=== PATIENT | male | born 1940 | race Asian ===

== ENCOUNTER 2020-04-24 22:53 | Inpatient (IN) | payer BC ==
[2020-04-24 23:53] LABS: BASO % 0.5 % (0-2.0); HEMATOCRIT 48.7 % (35.4-49); HEMOGLOBIN 16.7 GM/dL (11.7-16.9); LYMPH % 9.4 % (8-40); MCH 32.7 pg (25.7-33.7); MCHC 34.2 g/dl (32.0-35.9); MEAN CELL VOLUME 95.7 fl (80-96); MEAN PLT VOLUME 8.2 fl (7.5-11.1); MONO % 4.9 % (3.8-10.2); NEUT % 85.2 % (42.8-82.8); PLATELET COUNT 133 K/MM3 (134-434); RBC 5.09 M/mm3 (4.00-5.60); RDW 12.9 % (11.9-15.9); WHITE BLOOD COUNT 4.9 K/mm3 (4.0-10.0)
[2020-04-25 00:22] LABS: CHLORIDE 97 mmol/L (98-107); POTASSIUM 3.7 mmol/L (3.5-5.1); SODIUM 132 mmol/L (136-145)
[2020-04-25 00:24] LABS: INR 1.07 (0.83-1.09); PROTHROMBIN TIME (PATIENT) 13.1 SEC (9.7-13.0)
[2020-04-25 00:25] LABS: CALCIUM 8.6 mg/dL (8.5-10.1)
[2020-04-25 00:26] LABS: ALBUMIN 3.6 g/dl (3.4-5.0); ANION GAP 11 MMOL/L (8-16); BLOOD UREA NITROGEN 17.4 mg/dL (7-18); CO2 24 mmol/L (21-32); GLUCOSE,RANDOM 111 mg/dL (74-106)
[2020-04-25 00:28] LABS: SGOT/AST 101 U/L (15-37); SGPT/ALT 84 U/L (13-61)
[2020-04-25 00:29] LABS: CREATININE 0.7 mg/dL (0.55-1.3); LDH 593 U/L (87-246)
[2020-04-25] MEDS ORDERED: DEXAMETHASONE SOD PHOSPHATE 4 MG/1 ML VIAL IVPUSH ONE (00:29)
[2020-04-25 00:30] LABS: TOT PROT 7.3 g/dl (6.4-8.2)
[2020-04-25 00:31] LABS: ALK PHOS 60 U/L (45-117)
[2020-04-25 00:34] LABS: N-TERMINAL BNP 29.8 pg/ml (5-450)
[2020-04-25] MEDS ORDERED: DEXAMETHASONE SOD PHOSPHATE 10 MG/1 ML VIAL ONE (00:35)
[2020-04-25] MEDS ORDERED: SODIUM CHLORIDE 1,000 ML IV SCH (02:00)
[2020-04-25 06:30] LABS: BASO % 0.1 % (0-2.0); HEMATOCRIT 44.4 % (35.4-49); HEMOGLOBIN 15.5 GM/dL (11.7-16.9); LYMPH % 11.4 % (8-40); MCH 32.9 pg (25.7-33.7); MEAN CELL VOLUME 94.1 fl (80-96); MEAN PLT VOLUME 8.2 fl (7.5-11.1); MONO % 3.4 % (3.8-10.2); NEUT % 85.1 % (42.8-82.8); PLATELET COUNT 131 K/MM3 (134-434); RBC 4.71 M/mm3 (4.00-5.60); RDW 12.9 % (11.9-15.9); WHITE BLOOD COUNT 4.7 K/mm3 (4.0-10.0)
[2020-04-25 06:43] LABS: POTASSIUM 4.2 mmol/L (3.5-5.1)
[2020-04-25 06:45] LABS: CALCIUM 8.2 mg/dL (8.5-10.1)
[2020-04-25 06:46] LABS: ALBUMIN 3.1 g/dl (3.4-5.0); ALBUMIN 3.2 g/dl (3.4-5.0); BLOOD UREA NITROGEN 15.1 mg/dL (7-18); MAGNESIUM 2.3 mg/dL (1.8-2.4)
[2020-04-25 06:48] LABS: CREATININE 0.6 mg/dL (0.55-1.3)
[2020-04-25 06:49] LABS: BILIRUBIN,DIRECT 0.4 mg/dL (0.0-0.2); PHOSPHOROUS 3.4 mg/dL (2.5-4.9)
[2020-04-25 06:50] LABS: BILIRUBIN,TOTAL 0.9 mg/dL (0.2-1); TOT PROT 6.6 g/dl (6.4-8.2)
[2020-04-25 06:51] LABS: BILIRUBIN,TOTAL 0.8 mg/dL (0.2-1); TOT PROT 6.8 g/dl (6.4-8.2)
[2020-04-25] MEDS ORDERED: ZINC SULFATE 220 MG CAPSULE (FP) ONE (07:58)
[2020-04-25] MEDS ORDERED: FAMOTIDINE 10 MG TABLET ONE (07:58)
[2020-04-25] MEDS ORDERED: ASCORBIC ACID 500 MG TABLET (FP) ONE (07:58)
[2020-04-25] MEDS ORDERED: CHOLECALCIFEROL (VIT D3) 1,000 UNIT (25 MCG) TABLET ONE (07:59)
[2020-04-25] MEDS ORDERED: ENOXAPARIN NA (PORCINE) 40 MG/0.4 ML DISP.SYRIN SQ ONE (08:00)
[2020-04-25] MEDS: FAMOTIDINE 10 MG TABLET PO SCH (11:00)
[2020-04-25] MEDS: ENOXAPARIN NA (PORCINE) 40 MG/0.4 ML DISP.SYRIN SQ SCH (11:00)
[2020-04-25] MEDS: ZINC SULFATE 220 MG CAPSULE (FP) PO SCH (11:04)
[2020-04-25] MEDS: CHOLECALCIFEROL (VIT D3) 1,000 UNIT (25 MCG) TABLET PO SCH (11:05)
[2020-04-25] MEDS: ASCORBIC ACID 250 MG TABLET (FP) PO SCH (12:04)
[2020-04-25] MEDS ORDERED: REMDESIVIR 200 MG in SODIUM CHLORIDE 210 ML IVPB ONE (14:30)
[2020-04-25] MEDS ORDERED: ATORVASTATIN CA 40 MG TABLET (FP) PO SCH (22:00)
[2020-04-26 07:09] LABS: BASO % 0.1 % (0-2.0); HEMATOCRIT 42.3 % (35.4-49); LYMPH % 13.8 % (8-40); MCH 33.3 pg (25.7-33.7); MCHC 35.3 g/dl (32.0-35.9); MEAN CELL VOLUME 94.3 fl (80-96); MEAN PLT VOLUME 8.5 fl (7.5-11.1); MONO % 6.6 % (3.8-10.2); NEUT % 79.5 % (42.8-82.8); PLATELET COUNT 132 K/MM3 (134-434); RBC 4.49 M/mm3 (4.00-5.60); WHITE BLOOD COUNT 4.9 K/mm3 (4.0-10.0)
[2020-04-26 07:32] LABS: CHLORIDE 104 mmol/L (98-107); POTASSIUM 3.6 mmol/L (3.5-5.1); SODIUM 136 mmol/L (136-145)
[2020-04-26 07:35] LABS: ALBUMIN 2.8 g/dl (3.4-5.0)
[2020-04-26 07:36] LABS: ANION GAP 7 MMOL/L (8-16); BLOOD UREA NITROGEN 16.9 mg/dL (7-18); CO2 26 mmol/L (21-32); GLUCOSE,RANDOM 127 mg/dL (74-106); MAGNESIUM 2.3 mg/dL (1.8-2.4)
[2020-04-26 07:38] LABS: SGPT/ALT 81 U/L (13-61)
[2020-04-26 07:39] LABS: CREATININE 0.6 mg/dL (0.55-1.3); PHOSPHOROUS 2.6 mg/dL (2.5-4.9); SGOT/AST 102 U/L (15-37)
[2020-04-26 07:40] LABS: BILIRUBIN,TOTAL 0.7 mg/dL (0.2-1); TOT PROT 6.3 g/dl (6.4-8.2)
[2020-04-26 07:41] LABS: ALK PHOS 61 U/L (45-117)
[2020-04-26 07:45] LABS: LDH 611 U/L (87-246)
[2020-04-26 08:02] LABS: ERYTHROCYTE SEDIMENTATION RATE 65 mm/hr (0-20)
[2020-04-26] MEDS: ENOXAPARIN NA (PORCINE) 40 MG/0.4 ML DISP.SYRIN SQ SCH (09:32)
[2020-04-26] MEDS: DEXAMETHASONE SOD PHOSPHATE 10 MG/1 ML VIAL IVPUSH SCH (09:33)
[2020-04-26] MEDS: ZINC SULFATE 220 MG CAPSULE (FP) PO SCH (09:33)
[2020-04-26] MEDS: CHOLECALCIFEROL (VIT D3) 1,000 UNIT (25 MCG) TABLET PO SCH (09:33)
[2020-04-26] MEDS: FAMOTIDINE 10 MG TABLET PO SCH (09:33)
[2020-04-26] MEDS ORDERED: PT OWN MED DRAWER 7, Y5N ONE (09:36)
[2020-04-26] MEDS: ASCORBIC ACID 250 MG TABLET (FP) PO SCH (09:37)
[2020-04-26] MEDS ORDERED: amLODIPine BESYLATE 10 MG TABLET (FP) PO SCH (10:00)
[2020-04-26] MEDS: REMDESIVIR 100 MG in SODIUM CHLORIDE 230 ML IVPB SCH (14:14)
[2020-04-26] MEDS: ATORVASTATIN CA 10 MG TABLET (FP) PO SCH (22:01)
[2020-04-26] MEDS: FAMOTIDINE 20 MG TABLET PO SCH (22:01)
[2020-04-27 07:44] LABS: HEMATOCRIT 44.2 % (35.4-49); HEMOGLOBIN 15.7 GM/dL (11.7-16.9); LYMPH % 11.1 % (8-40); MCH 33.4 pg (25.7-33.7); MCHC 35.6 g/dl (32.0-35.9); MEAN CELL VOLUME 93.9 fl (80-96); MEAN PLT VOLUME 8.4 fl (7.5-11.1); MONO % 6.6 % (3.8-10.2); NEUT % 82.3 % (42.8-82.8); PLATELET COUNT 171 K/MM3 (134-434); RBC 4.71 M/mm3 (4.00-5.60); RDW 12.8 % (11.9-15.9); WHITE BLOOD COUNT 5.5 K/mm3 (4.0-10.0)
[2020-04-27 08:10] LABS: POTASSIUM 3.9 mmol/L (3.5-5.1)
[2020-04-27 08:12] LABS: CALCIUM 8.1 mg/dL (8.5-10.1)
[2020-04-27 08:13] LABS: ALBUMIN 2.9 g/dl (3.4-5.0); BLOOD UREA NITROGEN 19.4 mg/dL (7-18); MAGNESIUM 2.5 mg/dL (1.8-2.4)
[2020-04-27 08:16] LABS: CREATININE 0.6 mg/dL (0.55-1.3); PHOSPHOROUS 2.9 mg/dL (2.5-4.9)
[2020-04-27 08:17] LABS: BILIRUBIN,TOTAL 0.7 mg/dL (0.2-1); TOT PROT 6.2 g/dl (6.4-8.2)
[2020-04-27] MEDS: TAMSULOSIN HCL 0.4 MG CAP PO SCH (08:47)
[2020-04-27] MEDS: amLODIPine BESYLATE 2.5 MG TABLET (FP) PO SCH (09:55)
[2020-04-27] MEDS: ZINC SULFATE 220 MG CAPSULE (FP) PO SCH (09:55)
[2020-04-27] MEDS: DEXAMETHASONE SOD PHOSPHATE 10 MG/1 ML VIAL IVPUSH SCH (09:55)
[2020-04-27] MEDS: ENOXAPARIN NA (PORCINE) 40 MG/0.4 ML DISP.SYRIN SQ SCH (09:55)
[2020-04-27] MEDS: CHOLECALCIFEROL (VIT D3) 1,000 UNIT (25 MCG) TABLET PO SCH (09:55)
[2020-04-27] MEDS: ASCORBIC ACID 250 MG TABLET (FP) PO SCH (09:56)
[2020-04-27] MEDS: FAMOTIDINE 20 MG TABLET PO SCH ×2 (09:56→21:59)
[2020-04-27] MEDS: REMDESIVIR 100 MG in SODIUM CHLORIDE 230 ML IVPB SCH (15:09)
[2020-04-27] MEDS: ATORVASTATIN CA 10 MG TABLET (FP) PO SCH (21:59)
[2020-04-28 07:23] LABS: BASO % 0.2 % (0-2.0); HEMATOCRIT 44.1 % (35.4-49); HEMOGLOBIN 15.9 GM/dL (11.7-16.9); LYMPH % 7.4 % (8-40); MCH 33.6 pg (25.7-33.7); MCHC 36.2 g/dl (32.0-35.9); MEAN PLT VOLUME 8.4 fl (7.5-11.1); MONO % 5.3 % (3.8-10.2); NEUT % 87.1 % (42.8-82.8); PLATELET COUNT 189 K/MM3 (134-434); RBC 4.74 M/mm3 (4.00-5.60); RDW 12.8 % (11.9-15.9); WHITE BLOOD COUNT 8.6 K/mm3 (4.0-10.0)
[2020-04-28 07:35] LABS: POTASSIUM 3.5 mmol/L (3.5-5.1)
[2020-04-28 07:37] LABS: ALBUMIN 2.9 g/dl (3.4-5.0); BLOOD UREA NITROGEN 19.4 mg/dL (7-18); MAGNESIUM 2.1 mg/dL (1.8-2.4)
[2020-04-28 07:40] LABS: CREATININE 0.6 mg/dL (0.55-1.3); PHOSPHOROUS 3.2 mg/dL (2.5-4.9)
[2020-04-28 07:42] LABS: BILIRUBIN,TOTAL 0.8 mg/dL (0.2-1); TOT PROT 6.4 g/dl (6.4-8.2)
[2020-04-28] MEDS ORDERED: PT OWN MED DRAWER 7, Y5N ONE ×2 (08:35→09:10)
[2020-04-28] MEDS: ZINC SULFATE 220 MG CAPSULE (FP) PO SCH (09:28)
[2020-04-28] MEDS: TAMSULOSIN HCL 0.4 MG CAP PO SCH (09:28)
[2020-04-28] MEDS: ENOXAPARIN NA (PORCINE) 40 MG/0.4 ML DISP.SYRIN SQ SCH (09:28)
[2020-04-28] MEDS: DEXAMETHASONE SOD PHOSPHATE 10 MG/1 ML VIAL IVPUSH SCH (09:28)
[2020-04-28] MEDS: amLODIPine BESYLATE 2.5 MG TABLET (FP) PO SCH (09:28)
[2020-04-28] MEDS: CHOLECALCIFEROL (VIT D3) 1,000 UNIT (25 MCG) TABLET PO SCH (09:28)
[2020-04-28] MEDS: FAMOTIDINE 20 MG TABLET PO SCH ×2 (09:28→22:20)
[2020-04-28] MEDS: ASCORBIC ACID 250 MG TABLET (FP) PO SCH (10:05)
[2020-04-28] MEDS: REMDESIVIR 100 MG in SODIUM CHLORIDE 230 ML IVPB SCH (14:52)
[2020-04-28] MEDS: ATORVASTATIN CA 10 MG TABLET (FP) PO SCH (22:20)
[2020-04-29 07:27] LABS: BASO % 0.1 % (0-2.0); HEMATOCRIT 39.3 % (35.4-49); HEMOGLOBIN 14.3 GM/dL (11.7-16.9); LYMPH % 5.5 % (8-40); MCH 33.4 pg (25.7-33.7); MCHC 36.3 g/dl (32.0-35.9); MEAN CELL VOLUME 92.2 fl (80-96); MEAN PLT VOLUME 8.4 fl (7.5-11.1); MONO % 3.3 % (3.8-10.2); NEUT % 91.1 % (42.8-82.8); PLATELET COUNT 209 K/MM3 (134-434); RBC 4.27 M/mm3 (4.00-5.60); RDW 12.8 % (11.9-15.9); WHITE BLOOD COUNT 12.9 K/mm3 (4.0-10.0)
[2020-04-29 07:39] LABS: POTASSIUM 3.5 mmol/L (3.5-5.1)
[2020-04-29 08:02] LABS: ALBUMIN 2.6 g/dl (3.4-5.0); BLOOD UREA NITROGEN 21.6 mg/dL (7-18); CALCIUM 7.7 mg/dL (8.5-10.1); MAGNESIUM 2.2 mg/dL (1.8-2.4)
[2020-04-29 08:06] LABS: CREATININE 0.7 mg/dL (0.55-1.3)
[2020-04-29 08:07] LABS: BILIRUBIN,TOTAL 0.8 mg/dL (0.2-1); TOT PROT 5.4 g/dl (6.4-8.2)
[2020-04-29] MEDS: FAMOTIDINE 20 MG TABLET PO SCH ×2 (09:28→21:47)
[2020-04-29] MEDS: amLODIPine BESYLATE 2.5 MG TABLET (FP) PO SCH (09:28)
[2020-04-29] MEDS: CHOLECALCIFEROL (VIT D3) 1,000 UNIT (25 MCG) TABLET PO SCH (09:28)
[2020-04-29] MEDS: DEXAMETHASONE SOD PHOSPHATE 10 MG/1 ML VIAL IVPUSH SCH (09:28)
[2020-04-29] MEDS: TAMSULOSIN HCL 0.4 MG CAP PO SCH (09:28)
[2020-04-29] MEDS: ASCORBIC ACID 250 MG TABLET (FP) PO SCH (09:28)
[2020-04-29] MEDS: ZINC SULFATE 220 MG CAPSULE (FP) PO SCH (09:28)
[2020-04-29] MEDS: ENOXAPARIN NA (PORCINE) 40 MG/0.4 ML DISP.SYRIN SQ SCH (09:28)
[2020-04-29 11:46] LABS: ANISOCYTOSIS 1+; MACROCYTOSIS 1+; PLATELET ESTIMATE NORMAL
[2020-04-29 12:01] LABS: ARTERIAL BLD GAS O2 SATURATION 95.1 mmHg (95-98); ARTERIAL BLOOD GAS BASE EXCESS 1.5 mmol/L (-2-2); ARTERIAL BLOOD GAS PO2 69.6 mmHg (80-100); ARTERIAL BLOOD GAS pH 7.472 (7.350-7.450)
[2020-04-29] MEDS: REMDESIVIR 100 MG in SODIUM CHLORIDE 230 ML IVPB SCH (14:43)
[2020-04-29] MEDS: ATORVASTATIN CA 10 MG TABLET (FP) PO SCH (21:47)
[2020-04-30 07:36] LABS: EOS % 0.1 % (0-4.5); HEMATOCRIT 44.8 % (35.4-49); LYMPH % 4.3 % (8-40); MCH 33.2 pg (25.7-33.7); MCHC 35.8 g/dl (32.0-35.9); MEAN CELL VOLUME 92.8 fl (80-96); MEAN PLT VOLUME 8.7 fl (7.5-11.1); MONO % 2.4 % (3.8-10.2); NEUT % 93.2 % (42.8-82.8); PLATELET COUNT 205 K/MM3 (134-434); RBC 4.82 M/mm3 (4.00-5.60); WHITE BLOOD COUNT 16.2 K/mm3 (4.0-10.0)
[2020-04-30 07:59] LABS: POTASSIUM 3.7 mmol/L (3.5-5.1)
[2020-04-30 08:08] LABS: ALBUMIN 2.8 g/dl (3.4-5.0); BLOOD UREA NITROGEN 23.8 mg/dL (7-18); CALCIUM 7.8 mg/dL (8.5-10.1); MAGNESIUM 2.2 mg/dL (1.8-2.4)
[2020-04-30 08:10] LABS: CREATININE 0.5 mg/dL (0.55-1.3)
[2020-04-30 08:11] LABS: BILIRUBIN,TOTAL 1.1 mg/dL (0.2-1); PHOSPHOROUS 3.3 mg/dL (2.5-4.9); TOT PROT 6.2 g/dl (6.4-8.2)
[2020-04-30] MEDS ORDERED: PT OWN MED DRAWER 7, Y5N ONE (09:16)
[2020-04-30] MEDS: amLODIPine BESYLATE 2.5 MG TABLET (FP) PO SCH (09:27)
[2020-04-30] MEDS: CHOLECALCIFEROL (VIT D3) 1,000 UNIT (25 MCG) TABLET PO SCH (09:27)
[2020-04-30] MEDS: TAMSULOSIN HCL 0.4 MG CAP PO SCH (09:27)
[2020-04-30] MEDS: ZINC SULFATE 220 MG CAPSULE (FP) PO SCH (09:27)
[2020-04-30] MEDS: ENOXAPARIN NA (PORCINE) 40 MG/0.4 ML DISP.SYRIN SQ SCH (09:27)
[2020-04-30] MEDS: DEXAMETHASONE SOD PHOSPHATE 10 MG/1 ML VIAL IVPUSH SCH (09:28)
[2020-04-30] MEDS: ASCORBIC ACID 250 MG TABLET (FP) PO SCH (09:29)
[2020-04-30] MEDS: FAMOTIDINE 20 MG TABLET PO SCH ×2 (09:29→22:02)
[2020-04-30 10:11] LABS: ANISOCYTOSIS 0; MACROCYTOSIS 0; PLATELET ESTIMATE NORMAL
[2020-04-30] MEDS: ATORVASTATIN CA 10 MG TABLET (FP) PO SCH (22:01)
[2020-04-30] MEDS: MELATONIN 5 MG TABLETS PO PRN (22:26)
[2020-05-01 08:38] LABS: BASO % 0.1 % (0-2.0); EOS % 0.2 % (0-4.5); HEMATOCRIT 46.4 % (35.4-49); HEMOGLOBIN 16.5 GM/dL (11.7-16.9); LYMPH % 3.6 % (8-40); MCH 33.2 pg (25.7-33.7); MCHC 35.6 g/dl (32.0-35.9); MEAN CELL VOLUME 93.4 fl (80-96); MEAN PLT VOLUME 8.4 fl (7.5-11.1); MONO % 1.8 % (3.8-10.2); NEUT % 94.3 % (42.8-82.8); PLATELET COUNT 206 K/MM3 (134-434); RBC 4.97 M/mm3 (4.00-5.60); RDW 12.8 % (11.9-15.9); WHITE BLOOD COUNT 18.9 K/mm3 (4.0-10.0)
[2020-05-01] MEDS ORDERED: PT OWN MED DRAWER 7, Y5N ONE (08:49)
[2020-05-01 09:02] LABS: CALCIUM 8.1 mg/dL (8.5-10.1)
[2020-05-01 09:03] LABS: ALBUMIN 2.9 g/dl (3.4-5.0); BLOOD UREA NITROGEN 23.3 mg/dL (7-18); MAGNESIUM 2.3 mg/dL (1.8-2.4)
[2020-05-01 09:06] LABS: CREATININE 0.6 mg/dL (0.55-1.3); PHOSPHOROUS 3.7 mg/dL (2.5-4.9)
[2020-05-01 09:07] LABS: BILIRUBIN,TOTAL 1.3 mg/dL (0.2-1); TOT PROT 6.4 g/dl (6.4-8.2)
[2020-05-01] MEDS: ZINC SULFATE 220 MG CAPSULE (FP) PO SCH (09:21)
[2020-05-01] MEDS: amLODIPine BESYLATE 2.5 MG TABLET (FP) PO SCH (09:21)
[2020-05-01] MEDS: CHOLECALCIFEROL (VIT D3) 1,000 UNIT (25 MCG) TABLET PO SCH (09:21)
[2020-05-01] MEDS: TAMSULOSIN HCL 0.4 MG CAP PO SCH (09:21)
[2020-05-01] MEDS: DEXAMETHASONE SOD PHOSPHATE 10 MG/1 ML VIAL IVPUSH SCH (09:21)
[2020-05-01] MEDS: FAMOTIDINE 20 MG TABLET PO SCH ×2 (09:21→21:01)
[2020-05-01] MEDS: ASCORBIC ACID 250 MG TABLET (FP) PO SCH (09:22)
[2020-05-01] MEDS: ENOXAPARIN NA (PORCINE) 40 MG/0.4 ML DISP.SYRIN SQ SCH (09:22)
[2020-05-01 09:51] LABS: ANISOCYTOSIS 0; MACROCYTOSIS 0; PLATELET ESTIMATE NORMAL
[2020-05-01 11:44] LABS: BILIRUBIN,DIRECT 0.4 mg/dL (0.0-0.2)
[2020-05-01] MEDS ORDERED: TOCILIZUMAB (ACTEMRA) 200 MG/10 ML VIAL IVPB ONE (11:49)
[2020-05-01] MEDS ORDERED: TOCILIZUMAB IVPB ONE (13:00)
[2020-05-01] MEDS ORDERED: SODIUM CHLORIDE IVPB ONE (13:00)
[2020-05-01] MEDS: ATORVASTATIN CA 10 MG TABLET (FP) PO SCH (21:01)
[2020-05-01] MEDS ORDERED: ENOXAPARIN NA (PORCINE) 60 MG/0.6 ML DISP.SYRIN SQ ONE (22:00)
[2020-05-01] MEDS ORDERED: ENOXAPARIN NA (PORCINE) 40 MG/0.4 ML DISP.SYRIN SQ SCH (23:45)
[2020-05-02 07:09] LABS: BASO % 0.1 % (0-2.0); EOS % 0.1 % (0-4.5); HEMATOCRIT 47.5 % (35.4-49); HEMOGLOBIN 16.6 GM/dL (11.7-16.9); LYMPH % 3.3 % (8-40); MEAN CELL VOLUME 94.3 fl (80-96); MEAN PLT VOLUME 9.2 fl (7.5-11.1); MONO % 1.8 % (3.8-10.2); NEUT % 94.7 % (42.8-82.8); PLATELET COUNT 190 K/MM3 (134-434); RBC 5.04 M/mm3 (4.00-5.60); RDW 13.1 % (11.9-15.9); WHITE BLOOD COUNT 15.9 K/mm3 (4.0-10.0)
[2020-05-02 07:33] LABS: POTASSIUM 4.4 mmol/L (3.5-5.1)
[2020-05-02 07:37] LABS: ALBUMIN 2.8 g/dl (3.4-5.0); BLOOD UREA NITROGEN 26.2 mg/dL (7-18); CALCIUM 8.2 mg/dL (8.5-10.1); MAGNESIUM 2.4 mg/dL (1.8-2.4)
[2020-05-02 07:40] LABS: CREATININE 0.7 mg/dL (0.55-1.3)
[2020-05-02 07:41] LABS: PHOSPHOROUS 3.8 mg/dL (2.5-4.9)
[2020-05-02 07:42] LABS: BILIRUBIN,TOTAL 1.2 mg/dL (0.2-1); TOT PROT 6.5 g/dl (6.4-8.2)
[2020-05-02 08:54] LABS: ANISOCYTOSIS 0; MACROCYTOSIS 0; PLATELET ESTIMATE NORMAL
[2020-05-02] MEDS ORDERED: PT OWN MED DRAWER 7, Y5N ONE (09:38)
[2020-05-02] MEDS: ZINC SULFATE 220 MG CAPSULE (FP) PO SCH (09:45)
[2020-05-02] MEDS: amLODIPine BESYLATE 2.5 MG TABLET (FP) PO SCH (09:45)
[2020-05-02] MEDS: FAMOTIDINE 20 MG TABLET PO SCH ×2 (09:45→21:22)
[2020-05-02] MEDS: TAMSULOSIN HCL 0.4 MG CAP PO SCH (09:45)
[2020-05-02] MEDS: ASCORBIC ACID 250 MG TABLET (FP) PO SCH (09:45)
[2020-05-02] MEDS: CHOLECALCIFEROL (VIT D3) 1,000 UNIT (25 MCG) TABLET PO SCH (09:46)
[2020-05-02] MEDS: DEXAMETHASONE SOD PHOSPHATE 10 MG/1 ML VIAL IVPUSH SCH (09:46)
[2020-05-02] MEDS: ENOXAPARIN NA (PORCINE) 40 MG/0.4 ML DISP.SYRIN SQ SCH ×2 (09:47→21:21)
[2020-05-02] MEDS ORDERED: ENOXAPARIN NA (PORCINE) 40 MG/0.4 ML DISP.SYRIN SQ SCH (10:00)
[2020-05-02] MEDS: ATORVASTATIN CA 10 MG TABLET (FP) PO SCH (21:22)
[2020-05-03] MEDS: MELATONIN 5 MG TABLETS PO PRN ×2 (02:31→22:29)
[2020-05-03] MEDS ORDERED: PT OWN MED DRAWER 7, Y5N ONE ×2 (09:15→09:25)
[2020-05-03] MEDS: DEXAMETHASONE SOD PHOSPHATE 10 MG/1 ML VIAL IVPUSH SCH (09:39)
[2020-05-03] MEDS: TAMSULOSIN HCL 0.4 MG CAP PO SCH (09:40)
[2020-05-03] MEDS: ENOXAPARIN NA (PORCINE) 60 MG/0.6 ML DISP.SYRIN SQ SCH ×2 (09:40→22:30)
[2020-05-03] MEDS: amLODIPine BESYLATE 2.5 MG TABLET (FP) PO SCH (09:41)
[2020-05-03] MEDS: ZINC SULFATE 220 MG CAPSULE (FP) PO SCH (09:41)
[2020-05-03] MEDS: CHOLECALCIFEROL (VIT D3) 1,000 UNIT (25 MCG) TABLET PO SCH (09:41)
[2020-05-03] MEDS: FAMOTIDINE 20 MG TABLET PO SCH ×2 (09:41→22:30)
[2020-05-03] MEDS: ASCORBIC ACID 250 MG TABLET (FP) PO SCH (09:41)
[2020-05-03 10:38] LABS: POTASSIUM 4.5 mmol/L (3.5-5.1)
[2020-05-03 10:47] LABS: ALBUMIN 2.9 g/dl (3.4-5.0); BLOOD UREA NITROGEN 30.7 mg/dL (7-18); CALCIUM 8.6 mg/dL (8.5-10.1); MAGNESIUM 2.7 mg/dL (1.8-2.4)
[2020-05-03 10:50] LABS: CREATININE 0.7 mg/dL (0.55-1.3)
[2020-05-03 11:52] LABS: BASO % 0.9 % (0-2.0); EOS % 0.3 % (0-4.5); HEMATOCRIT 51.1 % (35.4-49); HEMOGLOBIN 17.5 GM/dL (11.7-16.9); LYMPH % 1.9 % (8-40); MCH 32.6 pg (25.7-33.7); MCHC 34.2 g/dl (32.0-35.9); MEAN CELL VOLUME 95.4 fl (80-96); NEUT % 95.9 % (42.8-82.8); RBC 5.36 M/mm3 (4.00-5.60); WHITE BLOOD COUNT 19.9 K/mm3 (4.0-10.0)
[2020-05-03 12:34] LABS: PLATELET COUNT 214 K/MM3 (134-434); PLATELET ESTIMATE ADEQUATE
[2020-05-03] MEDS: ATORVASTATIN CA 10 MG TABLET (FP) PO SCH (22:29)
[2020-05-03] MEDS ORDERED: LORazepam 2 MG/ML SDV VIAL IVPUSH ONE (23:44)
[2020-05-03] MEDS ORDERED: LORazepam 0.5 MG TABLET PO ONE (23:49)
[2020-05-04] MEDS ORDERED: PT OWN MED DRAWER 7, Y5N ONE (10:42)
[2020-05-04] MEDS: DEXAMETHASONE SOD PHOSPHATE 10 MG/1 ML VIAL IVPUSH SCH (10:50)
[2020-05-04] MEDS: ENOXAPARIN NA (PORCINE) 60 MG/0.6 ML DISP.SYRIN SQ SCH ×2 (10:50→23:20)
[2020-05-04] MEDS: ASCORBIC ACID 250 MG TABLET (FP) PO SCH (10:51)
[2020-05-04] MEDS: ZINC SULFATE 220 MG CAPSULE (FP) PO SCH (10:51)
[2020-05-04] MEDS: FAMOTIDINE 20 MG TABLET PO SCH ×2 (10:51→23:19)
[2020-05-04] MEDS: TAMSULOSIN HCL 0.4 MG CAP PO SCH (10:51)
[2020-05-04] MEDS: CHOLECALCIFEROL (VIT D3) 1,000 UNIT (25 MCG) TABLET PO SCH (10:51)
[2020-05-04] MEDS: amLODIPine BESYLATE 2.5 MG TABLET (FP) PO SCH (10:51)
[2020-05-04] MEDS: ATORVASTATIN CA 10 MG TABLET (FP) PO SCH (23:19)
[2020-05-05] MEDS ORDERED: LORazepam 2 MG/ML SDV VIAL IVPUSH ONE (01:04)
[2020-05-05 07:42] LABS: POTASSIUM 5.1 mmol/L (3.5-5.1)
[2020-05-05 07:46] LABS: CALCIUM 8.7 mg/dL (8.5-10.1)
[2020-05-05 07:49] LABS: CREATININE 0.9 mg/dL (0.55-1.3)
[2020-05-05 07:51] LABS: BILIRUBIN,TOTAL 1.3 mg/dL (0.2-1); TOT PROT 6.8 g/dl (6.4-8.2)
[2020-05-05 08:04] LABS: HEMATOCRIT 56.9 % (35.4-49); HEMOGLOBIN 19.7 GM/dL (11.7-16.9); MCH 32.8 pg (25.7-33.7); MCHC 34.6 g/dl (32.0-35.9); MEAN CELL VOLUME 94.9 fl (80-96); MEAN PLT VOLUME 9.4 fl (7.5-11.1); PLATELET COUNT 188 K/MM3 (134-434); WHITE BLOOD COUNT 23.9 K/mm3 (4.0-10.0)
[2020-05-05] MEDS ORDERED: PT OWN MED DRAWER 7, Y5N ONE (09:11)
[2020-05-05] MEDS: TAMSULOSIN HCL 0.4 MG CAP PO SCH (09:24)
[2020-05-05] MEDS: CHOLECALCIFEROL (VIT D3) 1,000 UNIT (25 MCG) TABLET PO SCH (09:24)
[2020-05-05] MEDS: ZINC SULFATE 220 MG CAPSULE (FP) PO SCH (09:24)
[2020-05-05] MEDS: amLODIPine BESYLATE 2.5 MG TABLET (FP) PO SCH (09:24)
[2020-05-05] MEDS: DEXAMETHASONE SOD PHOSPHATE 10 MG/1 ML VIAL IVPUSH SCH (09:25)
[2020-05-05] MEDS: ENOXAPARIN NA (PORCINE) 60 MG/0.6 ML DISP.SYRIN SQ SCH ×2 (09:25→22:27)
[2020-05-05] MEDS: ASCORBIC ACID 250 MG TABLET (FP) PO SCH (09:26)
[2020-05-05] MEDS: FAMOTIDINE 20 MG TABLET PO SCH ×2 (09:26→22:27)
[2020-05-05] MEDS ORDERED: MORPHINE SULFATE 2 MG/ML VIAL IVPUSH ONE (10:15)
[2020-05-05] MEDS ORDERED: SODIUM CHLORIDE 500 ML IV STA (10:42)
[2020-05-05] MEDS ORDERED: LACTATED RINGERS SOLUTION 1000 ML INFUS.BAG IV STA (12:36)
[2020-05-05] MEDS: LACTATED RINGERS SOLUTION 1,000 ML/1,000 ML INFUS.BAG IV SCH (13:17)
[2020-05-05] MEDS: morphine SULFATE 4 MG/ML VIAL IVPUSH PRN ×2 (16:29→22:27)
[2020-05-05] MEDS: ATORVASTATIN CA 10 MG TABLET (FP) PO SCH (22:27)
[2020-05-05] MEDS: MELATONIN 5 MG TABLETS PO PRN (22:27)
[2020-05-06] MEDS: LACTATED RINGERS SOLUTION 1,000 ML/1,000 ML INFUS.BAG IV SCH ×2 (06:43→12:30)
[2020-05-06 07:43] LABS: HEMATOCRIT 53.7 % (35.4-49); HEMOGLOBIN 18.4 GM/dL (11.7-16.9); MCH 32.7 pg (25.7-33.7); MCHC 34.4 g/dl (32.0-35.9); MEAN CELL VOLUME 95.1 fl (80-96); MEAN PLT VOLUME 9.4 fl (7.5-11.1); PLATELET COUNT 156 K/MM3 (134-434); RBC 5.64 M/mm3 (4.00-5.60); WHITE BLOOD COUNT 21.2 K/mm3 (4.0-10.0)
[2020-05-06 07:49] LABS: POTASSIUM 4.5 mmol/L (3.5-5.1)
[2020-05-06 07:54] LABS: ALBUMIN 2.8 g/dl (3.4-5.0); BLOOD UREA NITROGEN 55.3 mg/dL (7-18); CALCIUM 8.3 mg/dL (8.5-10.1)
[2020-05-06 07:58] LABS: CREATININE 0.8 mg/dL (0.55-1.3)
[2020-05-06 07:59] LABS: BILIRUBIN,TOTAL 1.8 mg/dL (0.2-1)
[2020-05-06] MEDS ORDERED: PT OWN MED DRAWER 7, Y5N ONE ×2 (08:44→09:04)
[2020-05-06] MEDS: ASCORBIC ACID 250 MG TABLET (FP) PO SCH (09:17)
[2020-05-06] MEDS: amLODIPine BESYLATE 2.5 MG TABLET (FP) PO SCH (09:17)
[2020-05-06] MEDS: DEXAMETHASONE SOD PHOSPHATE 10 MG/1 ML VIAL IVPUSH SCH (09:17)
[2020-05-06] MEDS: CHOLECALCIFEROL (VIT D3) 1,000 UNIT (25 MCG) TABLET PO SCH (09:17)
[2020-05-06] MEDS: TAMSULOSIN HCL 0.4 MG CAP PO SCH (09:17)
[2020-05-06] MEDS: ZINC SULFATE 220 MG CAPSULE (FP) PO SCH (09:17)
[2020-05-06] MEDS: FAMOTIDINE 20 MG TABLET PO SCH ×2 (09:17→22:33)
[2020-05-06] MEDS: ENOXAPARIN NA (PORCINE) 60 MG/0.6 ML DISP.SYRIN SQ SCH ×2 (09:18→22:32)
[2020-05-06] MEDS: morphine SULFATE 4 MG/ML VIAL IVPUSH PRN ×2 (09:20→22:33)
[2020-05-06 12:12] LABS: MAGNESIUM 2.8 mg/dL (1.8-2.4)
[2020-05-06 12:16] LABS: PHOSPHOROUS 4.1 mg/dL (2.5-4.9)
[2020-05-06] MEDS: ATORVASTATIN CA 10 MG TABLET (FP) PO SCH (22:32)
[2020-05-06] MEDS: MELATONIN 5 MG TABLETS PO PRN (22:33)
[2020-05-07] MEDS ORDERED: LORazepam 2 MG/ML SDV VIAL IVPUSH ONE (01:54)
[2020-05-07 08:42] LABS: HEMATOCRIT 55.6 % (35.4-49); MCH 32.5 pg (25.7-33.7); MCHC 34.1 g/dl (32.0-35.9); MEAN CELL VOLUME 95.4 fl (80-96); MEAN PLT VOLUME 9.9 fl (7.5-11.1); PLATELET COUNT 134 K/MM3 (134-434); RBC 5.83 M/mm3 (4.00-5.60); WHITE BLOOD COUNT 20.9 K/mm3 (4.0-10.0)
[2020-05-07 08:49] LABS: CHLORIDE 110 mmol/L (98-107); POTASSIUM 4.5 mmol/L (3.5-5.1); SODIUM 146 mmol/L (136-145)
[2020-05-07 08:55] LABS: ALBUMIN 2.9 g/dl (3.4-5.0); ANION GAP 9 MMOL/L (8-16); BLOOD UREA NITROGEN 56.7 mg/dL (7-18); CALCIUM 8.4 mg/dL (8.5-10.1); CO2 28 mmol/L (21-32); GLUCOSE,RANDOM 191 mg/dL (74-106)
[2020-05-07 08:58] LABS: CREATININE 0.8 mg/dL (0.55-1.3); SGOT/AST 32 U/L (15-37); SGPT/ALT 34 U/L (13-61)
[2020-05-07 09:00] LABS: BILIRUBIN,TOTAL 1.2 mg/dL (0.2-1)
[2020-05-07 09:01] LABS: ALK PHOS 96 U/L (45-117)
[2020-05-07] MEDS ORDERED: PT OWN MED DRAWER 7, Y5N ONE (09:53)
[2020-05-07] MEDS: CHOLECALCIFEROL (VIT D3) 1,000 UNIT (25 MCG) TABLET PO SCH (10:07)
[2020-05-07] MEDS: ZINC SULFATE 220 MG CAPSULE (FP) PO SCH (10:07)
[2020-05-07] MEDS: FAMOTIDINE 20 MG TABLET PO SCH (10:07)
[2020-05-07] MEDS: amLODIPine BESYLATE 2.5 MG TABLET (FP) PO SCH (10:07)
[2020-05-07] MEDS: TAMSULOSIN HCL 0.4 MG CAP PO SCH (10:08)
[2020-05-07] MEDS: LORazepam 2 MG/ML SDV VIAL IVPUSH PRN ×2 (10:08→21:56)
[2020-05-07] MEDS: ASCORBIC ACID 250 MG TABLET (FP) PO SCH (10:08)
[2020-05-07] MEDS: ENOXAPARIN NA (PORCINE) 60 MG/0.6 ML DISP.SYRIN SQ SCH ×2 (10:09→21:56)
[2020-05-07] MEDS: DEXAMETHASONE SOD PHOSPHATE 10 MG/1 ML VIAL IVPUSH SCH (10:09)
[2020-05-07] MEDS: LACTATED RINGERS SOLUTION 1,000 ML/1,000 ML INFUS.BAG IV SCH (12:50)
[2020-05-07] MEDS: ATORVASTATIN CA 10 MG TABLET (FP) PO SCH (21:56)
[2020-05-08] MEDS: morphine SULFATE 4 MG/ML VIAL IVPUSH PRN (02:01)
[2020-05-08] MEDS: LACTATED RINGERS SOLUTION 1,000 ML/1,000 ML INFUS.BAG IV SCH ×2 (02:01→15:40)
[2020-05-08] MEDS: ENOXAPARIN NA (PORCINE) 60 MG/0.6 ML DISP.SYRIN SQ SCH ×2 (09:29→21:19)
[2020-05-08] MEDS: DEXAMETHASONE SOD PHOSPHATE 10 MG/1 ML VIAL IVPUSH SCH (09:30)
[2020-05-08] MEDS ORDERED: AMIODARONE HCL 150 MG/3 ML VIAL IVPUSH ONE (13:06)
[2020-05-08] MEDS ORDERED: SODIUM CHLORIDE 1,000 ML IV STA ×2 (13:09→17:43)
[2020-05-08] MEDS ORDERED: RAPID SEQUENCE INTUBATION KIT NR ONE (13:13)
[2020-05-08] MEDS ORDERED: PROPOFOL 1,000,000 MCG/100 ML VIAL ONE (14:22)
[2020-05-08] MEDS ORDERED: FENTANYL NS IVPB 500 MCG/100 ML BAG IVPB ONE (14:23)
[2020-05-08] MEDS ORDERED: MIDAZOLAM 100 MG/100 ML MG IVPB ONE ×2 (14:37→19:42)
[2020-05-08] MEDS: MIDAZOLAM IN 0.9 % SOD.CHLORID 100 MG/100 ML PLAST..BAG IVPB SCH (15:30)
[2020-05-08] MEDS: PROPOFOL 1,000,000 MCG/100 ML VIAL IVPB SCH (15:30)
[2020-05-08] MEDS: FENTANYL IVPB 500 MCG/100 ML BAG IVPB SCH ×2 (16:00→21:20)
[2020-05-08 16:57] LABS: ARTERIAL BLOOD GAS PCO2 < 16.70 mmHg (35-45); ARTERIAL BLOOD GAS PO2 90.2 mmHg (80-100)
[2020-05-08] MEDS ORDERED: SODIUM BICARBONATE 8.4% 50 MEQ/50 ML VIAL ONE (17:08)
[2020-05-08] MEDS ORDERED: SODIUM BICARBONATE 8.4% 50 MEQ/50 ML DISP.SYRIN IVPUSH ONE ×2 (17:32)
[2020-05-08] MEDS ORDERED: NOREPINEPHRINE BITARTRATE 8,000 MCG/500 ML BAG IVPB ONE (17:33)
[2020-05-08] MEDS: NOREPINEPHRINE D5W PREMIX 16,000 MCG/500 ML BAG IVPB SCH (17:47)
[2020-05-08 17:51] LABS: BASO % 1.4 % (0-2.0); HEMATOCRIT 42.7 % (35.4-49); HEMOGLOBIN 14.3 GM/dL (11.7-16.9); LYMPH % 0.8 % (8-40); MCH 32.5 pg (25.7-33.7); MCHC 33.6 g/dl (32.0-35.9); MEAN CELL VOLUME 96.9 fl (80-96); MEAN PLT VOLUME 9.2 fl (7.5-11.1); MONO % 2.3 % (3.8-10.2); NEUT % 95.5 % (42.8-82.8); PLATELET COUNT 97 K/MM3 (134-434); RDW 12.9 % (11.9-15.9); WHITE BLOOD COUNT 20.8 K/mm3 (4.0-10.0)
[2020-05-08 17:54] VITALS: BMI 21.3
[2020-05-08] MEDS ORDERED: LACTATED RINGERS SOLUTION 1000 ML INFUS.BAG IV ONE (17:56)
[2020-05-08 17:58] LABS: ARTERIAL BLD GAS O2 SATURATION 84.6 mmHg (95-98); ARTERIAL BLOOD GAS BASE EXCESS 2.3 mmol/L (-2-2); ARTERIAL BLOOD GAS PO2 56.8 mmHg (80-100); ARTERIAL BLOOD GAS pH 7.271 (7.350-7.450)
[2020-05-08 18:02] LABS: CHLORIDE 114 mmol/L (98-107); POTASSIUM 4.3 mmol/L (3.5-5.1); SODIUM 154 mmol/L (136-145)
[2020-05-08 18:04] LABS: ANION GAP 6 MMOL/L (8-16); BLOOD UREA NITROGEN 46.4 mg/dL (7-18); CALCIUM 7.4 mg/dL (8.5-10.1); CO2 33 mmol/L (21-32)
[2020-05-08 18:05] LABS: GLUCOSE,RANDOM 211 mg/dL (74-106); MAGNESIUM 2.4 mg/dL (1.8-2.4)
[2020-05-08 18:07] LABS: CREATININE 0.8 mg/dL (0.55-1.3); SGOT/AST 30 U/L (15-37); SGPT/ALT 30 U/L (13-61)
[2020-05-08 18:08] LABS: PHOSPHOROUS 5.3 mg/dL (2.5-4.9)
[2020-05-08 18:09] LABS: TOT PROT 4.1 g/dl (6.4-8.2)
[2020-05-08 18:10] LABS: ALK PHOS 67 U/L (45-117)
[2020-05-08 18:27] LABS: PLATELET ESTIMATE DECREASED
[2020-05-08] MEDS: SODIUM CHLORIDE 0.45% 1,000 ML IV SCH (19:30)
[2020-05-08 20:08] LABS: HEMATOCRIT 42.9 % (35.4-49); HEMOGLOBIN 14.7 GM/dL (11.7-16.9); MCH 32.7 pg (25.7-33.7); MCHC 34.4 g/dl (32.0-35.9); MEAN CELL VOLUME 95.1 fl (80-96); MEAN PLT VOLUME 9.5 fl (7.5-11.1); PLATELET COUNT 117 K/MM3 (134-434); RBC 4.51 M/mm3 (4.00-5.60); RDW 12.8 % (11.9-15.9); WHITE BLOOD COUNT 26.3 K/mm3 (4.0-10.0)
[2020-05-08 21:07] LABS: ARTERIAL BLD GAS O2 SATURATION 95.6 mmHg (95-98); ARTERIAL BLOOD GAS BASE EXCESS 1.8 mmol/L (-2-2); ARTERIAL BLOOD GAS PO2 87.5 mmHg (80-100); ARTERIAL BLOOD GAS pH 7.301 (7.350-7.450)
[2020-05-08 21:14] LABS: ALLENS TEST POSITIVE
[2020-05-08 21:15] LABS: VENT MODE VAC; VENT RATE 28
[2020-05-08] MEDS: VECURONIUM BROMIDE 100 MG/100 ML BAG IVPB SCH (21:19)
[2020-05-08] MEDS: ATORVASTATIN CA 10 MG TABLET (FP) PO SCH (21:19)
[2020-05-09] MEDS: FENTANYL IVPB 500 MCG/100 ML BAG IVPB SCH ×2 (02:00→18:49)
[2020-05-09] MEDS ORDERED: FENTANYL NS IVPB 500 MCG/100 ML BAG IVPB ONE (08:02)
[2020-05-09] MEDS ORDERED: MIDAZOLAM 100 MG/100 ML MG IVPB ONE (08:02)
[2020-05-09 08:11] LABS: EOS % 0.1 % (0-4.5); HEMATOCRIT 48.4 % (35.4-49); HEMOGLOBIN 16.3 GM/dL (11.7-16.9); LYMPH % 1.4 % (8-40); MCH 32.9 pg (25.7-33.7); MCHC 33.8 g/dl (32.0-35.9); MEAN CELL VOLUME 97.3 fl (80-96); MEAN PLT VOLUME 9.7 fl (7.5-11.1); MONO % 1.4 % (3.8-10.2); NEUT % 97.1 % (42.8-82.8); PLATELET COUNT 110 K/MM3 (134-434); RBC 4.97 M/mm3 (4.00-5.60); RDW 12.8 % (11.9-15.9); WHITE BLOOD COUNT 21.1 K/mm3 (4.0-10.0)
[2020-05-09 08:21] LABS: POTASSIUM 4.7 mmol/L (3.5-5.1)
[2020-05-09 08:30] LABS: CALCIUM 7.7 mg/dL (8.5-10.1)
[2020-05-09 08:31] LABS: ALBUMIN 2.4 g/dl (3.4-5.0); BLOOD UREA NITROGEN 49.7 mg/dL (7-18); MAGNESIUM 2.6 mg/dL (1.8-2.4)
[2020-05-09 08:33] LABS: ARTERIAL BLD GAS O2 SATURATION 93.6 mmHg (95-98); ARTERIAL BLOOD GAS BASE EXCESS -1.3 mmol/L (-2-2); ARTERIAL BLOOD GAS PO2 81.4 mmHg (80-100); ARTERIAL BLOOD GAS pH 7.235 (7.350-7.450)
[2020-05-09 08:34] LABS: PHOSPHOROUS 5.2 mg/dL (2.5-4.9)
[2020-05-09 08:34] LABS: ALLENS TEST POSITIVE
[2020-05-09 08:35] LABS: BILIRUBIN,TOTAL 1.2 mg/dL (0.2-1)
[2020-05-09 08:36] LABS: VENT MODE A/C; VENT RATE 32
[2020-05-09] MEDS: DEXAMETHASONE SOD PHOSPHATE 10 MG/1 ML VIAL IVPUSH SCH (09:10)
[2020-05-09 09:25] LABS: ANISOCYTOSIS 0; MACROCYTOSIS 0; PLATELET ESTIMATE DECREASED; TOXIC GRANULATION 1+
[2020-05-09] MEDS ORDERED: ENOXAPARIN NA (PORCINE) 40 MG/0.4 ML DISP.SYRIN SQ SCH (10:00)
[2020-05-09] MEDS ORDERED: FAMOTIDINE 20 MG/50 ML IVPB 20 MG/50 ML MG IVPB SCH (10:00)
[2020-05-09] MEDS ORDERED: VASOPRESSIN 20 UNITS/ML VIAL IV ONE ×2 (10:26→21:11)
[2020-05-09] MEDS: VASOPRESSIN 40 UNITS in SODIUM CHLORIDE 98 ML IVPB SCH ×2 (11:00→21:47)
[2020-05-09] MEDS ORDERED: PIPERACILLIN/TAZOB 3.375 GM 3.375 GM in DEXTROSE 5%-WATER - 50 ML IVPB SCH ×2 (15:00→15:30)
[2020-05-09] MEDS ORDERED: PIPERACILLIN/TAZOBACTAM 3.375 GM VIAL IVPB ONE ×2 (15:15→19:48)
[2020-05-09] MEDS ORDERED: DEXTROSE 5%-WATER - 50 ML IVPB ONE ×2 (15:15→19:48)
[2020-05-09] MEDS: PROPOFOL 1,000,000 MCG/100 ML VIAL IVPB SCH (15:52)
[2020-05-09] MEDS: MIDAZOLAM IN 0.9 % SOD.CHLORID 100 MG/100 ML PLAST..BAG IVPB SCH (18:50)
[2020-05-09] MEDS: NOREPINEPHRINE D5W PREMIX 16,000 MCG/500 ML BAG IVPB SCH ×2 (18:50→19:15)
[2020-05-09] MEDS ORDERED: PHENYLEPHRINE NS PREMIX 10,000 MCG/100 ML BAG CVP SCH (19:45)
[2020-05-09] MEDS: SODIUM CHLORIDE 0.45% 1,000 ML IV SCH (20:18)
[2020-05-09] MEDS: PHENYLEPHRINE NS PREMIX 50,000 MCG/500 ML BAG CVP SCH (20:18)
[2020-05-09] MEDS: VECURONIUM BROMIDE 100 MG/100 ML BAG IVPB SCH (21:28)
[2020-05-09] MEDS: ATORVASTATIN CA 10 MG TABLET (FP) PO SCH (21:29)
[2020-05-09] MEDS: PIPERACILLIN/TAZOB 3.375 GM 3.375 GM in DEXTROSE 5%-WATER - 50 ML IVPB SCH (23:32)
[2020-05-10] MEDS: PHENYLEPHRINE NS PREMIX 50,000 MCG/500 ML BAG CVP SCH (01:05)
[2020-05-10] MEDS ORDERED: DEXTROSE 5%-WATER - 50 ML IVPB ONE ×2 (01:41→08:06)
[2020-05-10] MEDS ORDERED: PIPERACILLIN/TAZOBACTAM 3.375 GM VIAL IVPB ONE ×2 (01:41→08:05)
[2020-05-10] MEDS: PIPERACILLIN/TAZOB 3.375 GM 3.375 GM in DEXTROSE 5%-WATER - 50 ML IVPB SCH (02:18)
[2020-05-10] MEDS: FENTANYL IVPB 500 MCG/100 ML BAG IVPB SCH (04:33)
[2020-05-10] MEDS: MIDAZOLAM IN 0.9 % SOD.CHLORID 100 MG/100 ML PLAST..BAG IVPB SCH (04:50)
[2020-05-10] MEDS ORDERED: ACETAMINOPHEN 1000 MG/100 ML VIAL (NON FORMULARY) IVPB ONE (06:37)
[2020-05-10 06:40] LABS: ARTERIAL BLD GAS O2 SATURATION 67.7 mmHg (95-98); ARTERIAL BLOOD GAS BASE EXCESS -23.5 mmol/L (-2-2); ARTERIAL BLOOD GAS PO2 59.8 mmHg (80-100)
[2020-05-10 06:47] LABS: ALLENS TEST POSITIVE
[2020-05-10 06:48] LABS: VENT MODE A/C; VENT RATE 32
[2020-05-10 06:51] LABS: ARTERIAL BLOOD GAS pH 6.859 (7.350-7.450)
[2020-05-10] MEDS ORDERED: SODIUM CHLORIDE 1,000 ML IV STA (07:30)
[2020-05-10 16:52] VITALS: BP 74/31; PULSE 97; TEMP 99.8
== END 2020-05-10 15:16 | disposition expired | DRG 208 ==
LOC: JER 22:53 → JERBED 04-25 00:39 → J4S 04-25 19:32 → JICU-6 05-08 14:06
PROVIDERS: ADMIT Hospitalist; ATTEND Internal Medicine Pulmonary Disease
PROC: XW033E5 Introduction of Remdesivir Anti-infective into Peripheral Vein, Percutaneous Approach, New Technology Group 5 (ICD-10-PCS; 2020-04-25)
PROC: XW13325 Transfusion of Convalescent Plasma (Nonautologous) into Peripheral Vein, Percutaneous Approach, New Technology Group 5 (ICD-10-PCS; 2020-04-25)
PROC: XW033H5 Introduction of Tocilizumab into Peripheral Vein, Percutaneous Approach, New Technology Group 5 (ICD-10-PCS; 2020-05-01)
PROC: 02HV33Z Insertion of Infusion Device into Superior Vena Cava, Percutaneous Approach (ICD-10-PCS; 2020-05-08)
PROC: B548ZZA Ultrasonography of Superior Vena Cava, Guidance (ICD-10-PCS; 2020-05-08)
PROC: 5A1945Z Respiratory Ventilation, 24-96 Consecutive Hours (ICD-10-PCS; principal; 2020-05-09)
PROC: 0BH17EZ Insertion of Endotracheal Airway into Trachea, Via Natural or Artificial Opening (ICD-10-PCS; 2020-05-09)
PROC: 0W9B30Z Drainage of Left Pleural Cavity with Drainage Device, Percutaneous Approach (ICD-10-PCS; 2020-05-09)
PROC: 0W9930Z Drainage of Right Pleural Cavity with Drainage Device, Percutaneous Approach (ICD-10-PCS; 2020-05-09)
DX: U07.1 COVID-19 (principal); J96.01 Acute respiratory failure with hypoxia; J12.82 Pneumonia due to coronavirus disease 2019; E87.1 Hypo-osmolality and hyponatremia; I10 Essential (primary) hypertension; E78.5 Hyperlipidemia, unspecified; R74.01 Elevation of levels of liver transaminase levels; I45.10 Unspecified right bundle-branch block; D69.6 Thrombocytopenia, unspecified; T81.82XA Emphysema (subcutaneous) resulting from a procedure, initial encounter; Y84.8 Other medical procedures as the cause of abnormal reaction of the patient, or of later complication, without mention of misadventure at the time of the procedure
CPT/HCPCS: 36415; 36430; 36600; 71045-TC-FY; 80053; 80076; 82248; 82550; 82728; 82803; 82962; 83605; 83615; 83735; 83880; 84100; 84484; 85025; 85027; 85379; 85610; 85651; 85730; 86140; 86850; 86900; 86901; 87040; 87070; 87077; 87205; 87804; 87899; 93005; 93010; 93970-TC; 94002; 94660; 99285-25; C9399; C9803; J0131; J1100; J3262; P9017; U0003